=== PATIENT | male | born 1955 | race Two or more races ===

== ENCOUNTER 2020-04-29 10:48 | Inpatient (IN) | payer OTHER ==
[~2020-04-29] VITALS: Ht 167.6 cm; Wt 77.1 kg
[2020-05-12] MEDS ORDERED: ACID REDUCER20 M1 PO (14:08)
[2020-05-12] MEDS ORDERED: LIPOFEN50 MG PO (14:08)
[2020-05-12] MEDS ORDERED: CARDURA XL4 MG PO (14:08)
[2020-05-19] MEDS ORDERED: PERINDOPRIL ERBU4 MG PO (10:32)
[2020-05-19] MEDS ORDERED: FINASTERIDE5 MG PO (10:33)
[2020-05-19] MEDS ORDERED: OMEPRAZOLE20 M1 (10:33)
[2020-05-27] MEDS ORDERED: PRILOSEC OTC20 MG PO (09:32)
[2020-05-27] MEDS ORDERED: INTESTINEX680 M1 PO (09:32)
[2020-05-27] MEDS ORDERED: AMOX1TAB5 PO (09:32)
[2020-05-27] MEDS ORDERED: PERCOCET 5-3251 EACH PO (09:33)
== END 2020-05-27 14:28 | disposition home or self-care (01) | DRG 331 ==
LOC: SURH 05-19 06:06 → O/R 05-19 06:06 → SURH 05-19 10:00
PROVIDERS: ADMIT Surgery; ATTEND Surgery
PROC: 0DJD8ZZ Inspection of Lower Intestinal Tract, Via Natural or Artificial Opening Endoscopic (ICD-10-PCS; 2020-05-19)
PROC: 0DTN4ZZ Resection of Sigmoid Colon, Percutaneous Endoscopic Approach (ICD-10-PCS; principal; 2020-05-19 10:00)
PROC: 3E0436Z Introduction of Nutritional Substance into Central Vein, Percutaneous Approach (ICD-10-PCS; 2020-05-25)
DX: K57.32 Diverticulitis of large intestine without perforation or abscess without bleeding (principal); I11.9 Hypertensive heart disease without heart failure; K91.0 Vomiting following gastrointestinal surgery; D64.9 Anemia, unspecified

== ENCOUNTER 2020-07-08 09:42 | Emergency (ER) | payer OTHER ==
[~2020-07-08] VITALS: Ht 167.6 cm; Wt 78.9 kg
[~2020-07-08 09:42] MED LIST: ACID REDUCER20 M1 PO; AMOX1TAB5 PO; CARDURA XL4 MG PO; FINASTERIDE5 MG PO; INTESTINEX680 M1 PO; LIPOFEN50 MG PO; OMEPRAZOLE20 M1; PERCOCET 5-3251 EACH PO; PERINDOPRIL ERBU4 MG PO; PRILOSEC OTC20 MG PO
[2020-07-08] MEDS ORDERED: PERINDOPRIL ERBU4 MG PO (10:04)
[2020-07-08] MEDS ORDERED: TAMS0.4C PO (13:13)
[2020-07-08] MEDS ORDERED: CIPRO500 MG PO (13:13)
== END 2020-07-08 13:30 | disposition home or self-care (01) ==
LOC: ER 09:42
DX: R33.8 Other retention of urine (principal); R31.0 Gross hematuria; Z03.818 Encounter for observation for suspected exposure to other biological agents ruled out

== ENCOUNTER 2021-08-30 08:35 | Day surgery (SDC) | payer OTHER ==
[~2021-08-30 08:35] MED LIST changes: +CIPRO500 MG PO; +TAMS0.4C PO
== END 2021-08-30 13:10 | disposition home or self-care (01) ==
LOC: AMB-ENDOS 08:35
PROVIDERS: ATTEND Surgery
DX: K57.32 Diverticulitis of large intestine without perforation or abscess without bleeding (principal); K64.1 Second degree hemorrhoids; Z20.822 Contact with and (suspected) exposure to COVID-19